=== PATIENT | female | born 1950 | race Caucasian/White ===

== ENCOUNTER 2017-06-13 14:23 | Observation (INO) | payer OTHER, MEDICARE ==
[2017-06-13] MEDS ORDERED: NITROGLYCERIN 0.4 MG 25 EA TAB SL ONE (14:36)
[2017-06-13] MEDS ORDERED: ASPIRIN TABLET 325 MG TAB PO ONE (14:36)
[2017-06-13] MEDS ORDERED: SODIUM CHLORIDE 0.9% (FLUSH) 10 ML SYG IV PRN (14:36)
--- NOTE | 2017-06-13 14:36 | ED.PDOC ---
History of Present Illness - General Chief Complaint: Chest Pain/DE Stated Complaint: chest pressure Time Seen by Provider: 06/13/17 14:35 Source: patient, family Exam Limitations: no limitations - History of Present Illness Initial Comments: Katie Gallegos 66 y/o female stated that she woke up with chest heavinessas well as burning sensation on her chest this am and had been constant no diaphoresis no sob no nausea/vomiting .Had same symptoms 5 years ago and underwent thallium stress test which came back negative and since then never had symptoms. Timing/Duration: 4-6 hours Severity/Quality: moderate, burning Chest Pain Radiation: no radiation Activities at Onset: none Prior Chest Pain/Cardiac Workup: stress test, thallium scan - 5 years ago negative Nitro Today/Relief: 0.4 mg x 2, provided by ED Aspirin Treatment Today: 325 mg x 1, provided by ED Associated Symptoms: denies symptoms Allergies/Adverse Reactions: Allergies Ciprofloxacin [From Cipro] Allergy (Verified 06/13/17 15:26) Rash Doxycycline Allergy (Verified 06/13/17 15:26) Rash Sulfa Antibiotics Allergy (Verified 06/13/17 15:26) Rash Home Medications: Ambulatory Orders Pantoprazole Tablet [Protonix] 40 mg PO DAILY 06/13/17 Review of Systems - Review of Systems Constitutional: States: no symptoms reported EENTM: States: no symptoms reported Respiratory: States: no symptoms reported Cardiology: States: see HPI Gastrointestinal/Abdominal: States: other - history of gerd Genitourinary: States: no symptoms reported Musculoskeletal: States: no symptoms reported Skin: States: no symptoms reported Neurological: States: no symptoms reported Past Medical History (General) - Patient Medical History Hx Gastroesophageal Reflux: Yes Surgical History: other - right hip;hysterectomy Family Medical History - Family History Mother Hx Cardiac Disease: Yes - CAD/DE-age 56 Physical Exam - Physical Exam General Appearance: Alert, No apparent distress Eyes, Ears, Nose, Throat Exam: PERRL/EOMI, normal ENT inspection Neck: non-tender, full range of motion Respiratory: chest non-tender, lungs clear Cardiovascular/Chest: normal peripheral pulses, regular rate, rhythm, no murmur Peripheral Pulses: radial,right: 1+ Gastrointestinal/Abdominal: normal bowel sounds, non tender, soft, no organomegaly Neurologic: no motor/sensory deficits, alert, oriented x 3 Skin Exam: normal color, warm/dry Lymphatic: no adenopathy Progress - Progress Progress: 06/13/17 15:35 Vital Signs - 8 hr 06/13/17 06/13/17 15:08 15:14 Pulse Rate [ 73 82 Apical] Respiratory 20 20 Rate Blood Pressure 148/92 148/78 [Left Arm] O2 Sat by Pulse 97 95 Oximetry - Results/Orders Results/Orders: Laboratory Tests 06/13/17 06/13/17 14:47 14:47 WBC 6.8 RBC 4.69 Hgb 13.6 Hct 41.1 MCV 87.6 MCH 29.1 MCHC 33.2 RDW 13.1 Plt Count 254 MPV 9.9 Absolute Neuts (auto) 3.30 Absolute Lymphs (auto) 3.00 Absolute Monos (auto) 0.40 Absolute Eos (auto) 0.10 Absolute Basos (auto) 0.00 Neutrophils % 48.2 Lymphocytes % 44.1 Monocytes % 5.5 Eosinophils % 1.6 Basophils % 0.6 PT 11.2 INR 0.990 PTT (SP) 32.2 D-Dimer, Quantitative < 230 Sodium 140 Potassium 3.6 Chloride 106 Carbon Dioxide 25 Anion Gap 12.6 BUN 24 H Creatinine 0.82 BUN/Creatinine Ratio 29.3 H Random Glucose 173 H Serum Osmolality 287.6 Calcium 9.7 Magnesium 2.0 Total Bilirubin 0.6 Direct Bilirubin < 0.1 Indirect Bilirubin 0.5 AST 20 ALT 17 Alkaline Phosphatase 106 Creatine Kinase 95 CK-MB (CK-2) 1.6 CK-MB (CK-2) % Not Reportable Troponin I < 0.02 B-Natriuretic Peptide 16.4 Serum Total Protein 7.5 Albumin 4.2 - EKG/XRAY/CT EKG: Sinus, no ST T wave changes Comments: heart rate-79;no ischemic changes Departure - Departure Clinical Impression: Chest pain Qualifiers: Chest pain type: unspecified Qualified Code(s): R07.9 - Chest pain, unspecified Time of Disposition: 20:08 Disposition: Admit Patient Departure Forms: Patient Portal Self Enrollment Home Medications: Ambulatory Orders Pantoprazole Tablet [Protonix] 40 mg PO DAILY 06/13/17 Decision To Admit - Decistion To Admit Decision to Admit Reason: Admit from ER Decision to Admit Date: 06/13/17 Decision to Admit Time: 20:07 - D/W Og Rachel/Hospitalist
--- NOTE | 2017-06-13 14:58 | RAD ---
EXAM DESCRIPTION: Chest,1 View CLINICAL HISTORY: pain COMPARISON: None FINDINGS: Cardiac silhouette is within normal limits. EKG leads project over the chest. Aorta is tortuous. There is no focal parenchymal or pleural disease. There is no acute osseous process visualized. IMPRESSION: No evidence of acute cardiopulmonary disease. Electronically signed by: Allan Garcia MD 06/13/2017 2:57 PM CDT
[2017-06-13] MEDS ORDERED: LIDOCAINE VIS-MYLANTA 30 ML UD PO ONE ×2 (15:14→15:26)
[2017-06-13] MEDS ORDERED: PANTOPRAZOLE INJECTION 80 MG in SODIUM CHLORIDE 0.9% 100ML 80 ML IVPB ONE (15:27)
[2017-06-13] MEDS ORDERED: NITROGLYCERIN/D5W IV 250 ML IVS ONE (16:23)
[2017-06-13] MEDS ORDERED: NITROGLYCERIN/D5W IV 50,000 MCG in PREMIX BOTTLE 1 BOTTLE IVS SCH (16:30)
[2017-06-13] MEDS ORDERED: PANTOPRAZOLE SODIUM IV 40 MG VIAL ONE ×2 (16:37→17:04)
[2017-06-13] MEDS ORDERED: SODIUM CHLORIDE 0.9% 100ML 0 ML IVPB ONE (16:37)
[2017-06-13] MEDS ORDERED: HYDROcodone 10MG/APAP 325MG 1 EA TAB PO ONE (16:53)
[2017-06-13] MEDS ORDERED: SODIUM CHLORIDE 0.9% 100ML 100 ML IVPB ONE (17:04)
[2017-06-13] MEDS ORDERED: NITROGLYCERIN 0.4 MG/HR PATCH TOP ONE ×2 (19:04→19:10)
--- NOTE | 2017-06-13 21:02 | HP ---
SUPERVISING PHYSICIAN: Joseluis Garber MD CHIEF COMPLAINT: Chest pain. HISTORY OF PRESENT ILLNESS: Ms. Gallegos is a 66-year-old female patient that is from [place], [place], currently visiting friends and family with her for . She states she woke up this morning with chest heaviness described as a burning sensation, epigastric region that was constant. She denied any diaphoresis, shortness of breath, or any nausea or vomiting. She notes she had similar symptoms five years previously and underwent a thallium stress test which was negative at that time and she has not had any recurrence of symptoms. She notes she does have a history of gastritis and gastroesophageal reflux disease, which she normally takes Carafate for which she has not taken in the last several days as well as Protonix. Initial laboratory studies in the Emergency Department showed troponins were within normal limits as well as EKG showing normal sinus rhythm without any ST changes. She was initially given nitroglycerin sublingual that resulted in no significant change in her pain. This was followed by two GI cocktails which did result in some decrease of symptoms as well as morphine. She was then started in nitro drip given that she was continuing to have pain and apparently became pain free prior to the nitro drip being initiated. Dr. Tobar, Emergency Room physician, requested the patient be placed in observation to rule out any acute ischemic cardiac event. The patient was placed in observation in stable condition. PAST MEDICAL HISTORY: 1. Gastroesophageal reflux disease. 2. History of gastritis on Carafate and Protonix. 3. Diverticulosis. 4. Thallium stress test in 2011 which was negative for any ischemic changes per patient report. PAST SURGICAL HISTORY: 1. Hysterectomy. 2. Right total hip replacement. 3. Colonoscopy and EGD in 2016. HOME MEDICATIONS: 1. Protonix 40 mg daily. 2. Carafate 1 gram with meals and snacks as needed p.r.n. 3. Compounded GI cocktail PRN ALLERGIES: CIPROFLOXACIN, DOXYCYCLINE, SULFA ANTIBIOTICS. HEALTH CARE PROVIDERS: 1. Primary care provider is Judy Mckeon. 2. Forestry Faculty Member is Madonna Helms. FAMILY HISTORY: Mother had history of cardiovascular disease. SOCIAL HISTORY: The patient lives in [facility]. She works for [employer]. She is . She is currently visiting here during do season. She has never smoked and rarely drinks. REVIEW OF SYSTEMS: CONSTITUTIONAL: Denies any fevers, chills. HEENT: Denies headaches, nasal congestion or visual changes. RESPIRATORY: No shortness of breath, cough or congestion. CARDIOVASCULAR: As noted in history of present illness. GASTROINTESTINAL: Significant history of gastroesophageal reflux disease, as well as noted in history of present illness. No nausea, vomiting, diarrhea, or constipation. GENITOURINARY: Denies dysuria, hematuria, or other urinary symptoms. NEUROLOGIC: No dizziness, presyncopal episodes, syncopal episodes, other neurologic deficits. PHYSICAL EXAMINATION: VITAL SIGNS: Temperature 98.2. Pulse 75. Blood pressure initially 158/101. Heart 75. O2 saturation 96% on room air. Blood pressure on admission to Medical/Surgical Floor 125/69, pulse 57, respiratory rate 18, saturation 96% on room air. Admission weight 87.7 kg. GENERAL: On examination on Medical/Surgical Floor, the patient was alert and oriented, appeared to be comfortable in no acute distress. HEENT: Tympanic membranes clear bilaterally. Oropharynx is pink, moist without any lesions. NECK: Supple with full range of motion. No jugular venous distention noted. CHEST: Lungs clear to auscultation bilaterally without any rhonchi, wheezes, or rales. CARDIOVASCULAR: Regular rate and rhythm without any appreciable murmurs, gallops, or rubs. ABDOMEN: Obese with some mild tenderness noted in the epigastrium, but no rebound tenderness. Positive bowel sounds. EXTREMITIES: There is no cyanosis, clubbing or edema. NEUROLOGIC: The patient is alert and oriented times three. Facial features are symmetrical. Extraocular movements are within normal limits. There is no nystagmus noted. LABORATORY: CBC was within normal limits with white count 6.8, platelet count 254,000, hemoglobin 13.6, hematocrit 41.4, differential within normal limits. Coagulation studies showed normal PT, PT-T and D-dimer. Chemistries showed normal electrolytes with potassium 3.6, magnesium 2.0, BUN 24, creatinine 0.82, glucose 173. Liver functions were all within normal limits. Amylase and lipase were normal. She had two sets of troponins prior to admission and both showed troponin less than 0.02. After admission, third set showed troponin less than 0.02. BNP 16.4. RADIOLOGY: Single view chest x-ray in the Emergency Department per radiologic interpretation showed no evidence of acute cardiopulmonary diseases. She had three sets of EKGs, all showing normal sinus rhythm without any ST changes, T- wave inversions or ischemic changes. ASSESSMENT: 1. Chest pain, uncertain etiology with the patient having a strong history of gastroesophageal reflux disease having received significant pain relief with GI cocktail with cardiac enzymes initially within normal limits and EKG showing no acute changes or any ischemic changes. 2. Hypertension as noted on admission with the patient having no mention of hypertension and no hypertensive medication. 3. Gastroesophageal reflux disease with a strong history of multiple bouts of gastritis on Carafate and Protonix. 4. History of diverticulosis. 5. Obesity with a BMI of 34.6 PLAN: The patient is placed in observation tonight for further telemetry and cardiac monitoring to further rule out any acute ischemic coronary event. She was pain free on admission to the Medical/Surgical Floor. She will be on a cardiac diet. She will be started her on DVT prophylaxis per protocol. She was given Protonix in the Emergency Room and this will be continued as well as Carafate. Anticipated length of stay to be one to two days with discharge tomorrow pending further studies of cardiac enzymes in the morning as well as EKG. Should the patient show any significant changes, certainly we will readdress and plan accordingly for possible transfer for further evaluation by higher level of care for cardiology. At this time, the patient is stable. Once discharged, she will need close followup with both her gastrointestinal specialist, Dr. Helms, and her primary care physician, Dr. Mckeon, as well as at some point a cardiac workup. Until then, we will continue to monitor the patient closely and treat appropriately. #[id number] [facility]
[2017-06-13] MEDS ORDERED: NITROGLYCERIN 0.4 MG 25 EA TAB SL PRN (21:26)
[2017-06-13] MEDS ORDERED: ACETAMINOPHEN 325 MG TAB PO PRN (21:26)
[2017-06-13] MEDS ORDERED: IV SET AND CAP CHANGE INJ INJ SCH (21:30)
[2017-06-13] MEDS ORDERED: SUCRALFATE 1 GM/10 ML 1 GM UD PO ONE (22:00)
[2017-06-13] MEDS: MORPHINE SULFATE INJ 10 MG/ML VIAL IV PRN (22:21)
[2017-06-13] MEDS: KCL 20MEQ/0.45% NS 1,000 ML IVS PRN (22:22)
--- NOTE | 2017-06-13 22:32 | PCM.CORE ---
Physician DVT/VTE - Nurse DVT Assessment & Total Each Risk Factor Represents 2 Points: Age 60-74 Each Risk Factor is 1 Point: Obesity (BMI >25) DVT Assessment Score: 3 - 3-4 High Risk Treatments: Early Ambulation *, Sequential Compression Device Pharmacological: Enoxaparin 40 mg SQ Daily
[2017-06-13] MEDS ORDERED: ALPRAZolam 0.25 MG TAB PO ONE (22:37)
[2017-06-13] MEDS ORDERED: CALCIUM CARBONATE (ANTACID) 500 MG CHEWABLE TAB PO ONE (22:37)
[2017-06-13] MEDS ORDERED: ALUM & MAG HYDROX-SIMETHICONE 30 ML UD PO ONE (22:37)
[2017-06-13] MEDS: SODIUM CHLORIDE 0.9% (FLUSH) 10 ML SYG IV PRN (22:51)
[2017-06-13] MEDS ORDERED: ENOXAPARIN SODIUM 40 MG/0.4 ML SYG SUBCU SCH (23:00)
[2017-06-14] MEDS: SODIUM CHLORIDE 0.9% (FLUSH) 10 ML SYG IV PRN (03:29)
[2017-06-14] MEDS: MORPHINE SULFATE INJ 10 MG/ML VIAL IV PRN ×3 (03:30→12:01)
[2017-06-14] MEDS: SUCRALFATE 1 GM/10 ML 1 GM UD PO SCH ×2 (06:11→11:20)
[2017-06-14] MEDS ORDERED: KCL 20MEQ/0.45% NS 1,000 ML IVS ONE (07:35)
[2017-06-14] MEDS: KCL 20MEQ/0.45% NS 1,000 ML IVS PRN (07:37)
[2017-06-14] MEDS ORDERED: NITROGLYCERIN 0.4 MG/HR PATCH TOP SCH (09:00)
[2017-06-14] MEDS ORDERED: SODIUM CHLORIDE 0.9% (FLUSH) 10 ML SYG IV SCH (09:00)
[2017-06-14] MEDS ORDERED: PANTOPRAZOLE SODIUM TAB 40 MG PO SCH (09:00)
[2017-06-14] MEDS ORDERED: ASPIRIN TABLET 325 MG TAB PO SCH (09:00)
--- NOTE | 2017-06-14 09:21 | CT ---
PROCEDURE: CTA Chest HISTORY: chest pain, sob Indication: Same as above Comparison: None Technique: CT of the chest was done with intravenous contrast followed by CT angiography of the pulmonary arteries. Coronal, Sagittal and 3D volumetric MIP reconstructions were generated from the acquired data. The patient was injected with contrast intravenously, without any documented immediate adverse reactions. This exam was performed according to our departmental dose-optimization program, which includes automated exposure control, adjustment of the mA and/or KV according to the patient's size and/or use of iterative reconstruction technique. FINDINGS: There is no visualization of filling defects in the main pulmonary trunk, main right and left pulmonary arteries or their lower order branches to suggest pulmonary embolism. The bilateral main pulmonary arteries are normal in caliber. There is no evidence of interventricular septal deviation or filling defects in the cardiac chambers. There are no pneumothoraces or pleural effusions. There is presence of mild bilateral lower lobe discoid atelectasis/infiltrates. Note is made of few benign calcified granulomas in the right lung. Few benign calcified lymph nodes are seen in the subcarinal region of the mediastinum The trachea, bilateral mainstem bronchi and the bilateral main segmental bronchi are patent without any intraluminal mass lesions. There is no gross evidence of clinically significant thoracic aortic aneurysm or thoracic aortic dissection. There is no clinically significant pericardial effusion. There are no pathologically enlarged lymph nodes in the mediastinum, bilateral hilar, bilateral supraclavicular or the bilateral axillary regions. The thoracic bony rib cage appears grossly unremarkable. The visualized thoracic spine is unremarkable. Limited evaluation of the evaluated upper abdomen does not show any gross abnormalities. IMPRESSION: There is no pulmonary embolism There is presence of mild bilateral lower lobe discoid atelectasis/infiltrates Electronically signed by: Carlos Hills MD 06/14/2017 9:20 AM CDT Workstation: [id number]
[2017-06-14] MEDS ORDERED: ONDANSETRON INJ 4 MG/2 ML VIAL IV PRN (09:26)
[2017-06-14] MEDS ORDERED: KETOROLAC TROMETHAMINE INJ 30 MG/ML VIAL IV ONE (09:33)
--- NOTE | 2017-06-14 10:14 | CT ---
EXAM DESCRIPTION: Abdoment/Pelvis w/o Contrast CLINICAL HISTORY: biliary colic, Epigastric pain COMPARISON: None Available TECHNIQUE: Contiguous axial images of the abdomen and pelvis were obtained followed by reconstruction images. This exam was performed according to our departmental dose-optimization program, which includes automated exposure control, adjustment of the mA and/or kV according to patient size and/or use of iterative reconstruction technique. FINDINGS: Patient received contrast for an earlier examination. There is contrast material within the collecting system. Linear opacities within the lungs may represent scar versus subsegmental atelectasis. There is a calcified pulmonary nodule within the right lung. There is atherosclerosis. Patient is status post right hip arthroplasty. Metallic artifact at patient's right hip degrades multiple images. The liver, spleen, pancreas and kidneys are within normal limits. There is no hydronephrosis. The gallbladder is unremarkable by CT criteria. Adrenal glands are within normal limits. Aorta is of normal caliber and tapering. There is no free fluid in the abdomen or pelvis. There is no bowel obstruction. There is no stranding of the mesenteric fat to suggest an inflammatory response. An appendiceal stump was not visualized. Entire appendix was not delineated. There is no pericecal inflammation. IMPRESSION: No acute intra-abdominal abnormality. Electronically signed by: Allan Garcia MD 06/14/2017 10:12 AM CDT
[2017-06-14] MEDS ORDERED: PANTOPRAZOLE SODIUM IV 40 MG VIAL IV ONE (11:13)
[2017-06-14] MEDS ORDERED: LIDOCAINE VIS-MYLANTA 30 ML UD PO ONE (11:17)
[2017-06-14 12:36] VITALS: BP 113/60; TEMP 98.4; O2SAT 96
[2017-06-14] MEDS ORDERED: REMOVE OLD PATCH TOP SCH (21:00)
--- NOTE | 2017-06-23 15:48 | DS ---
SUPERVISING PHYSICIAN: Ten Wu M.D. DISCHARGE DIAGNOSIS: 1. Chest pain of uncertain etiology likely secondary to gastroesophageal reflux disease exacerbation as she did show good relief clinically with a GI cocktail and her cardiac enzymes had all been within normal limits serially as well as EKG showed no acute changes or ischemic changes. 2. Hypertension as noted on admission with the patient having no history of hypertension and not on any hypertensive medications at time of admission. 3. Gastroesophageal reflux disease with strong history of multiple bouts of gastritis currently on Carafate and Protonix. 4. History of diverticulosis without any evidence of diverticulitis. 5. Obesity with a BMI of 34.6. HISTORY OF PRESENT ILLNESS: Ms. Gallegos is a 66-year-old female patient that lives in [place], [place], and was visiting friends and family with her for . She states she woke up the morning of admission with chest heaviness described as a burning sensation in the epigastric region that was constant. She denied any diaphoresis, shortness of breath, or any nausea or vomiting. She notes she had similar symptoms five years previously and underwent a thallium stress test which was negative at that time and she had not had any recurrence of symptoms. She notes she does have a history of gastritis and gastroesophageal reflux disease, which she normally takes Carafate for which she has not been taking for several days as well as Protonix. Initial laboratory studies in the Emergency Department showed troponins were within normal limits as well as EKG showing normal sinus rhythm without any ST changes. She was initially given sublingual Nitro that resulted in no significant change in her pain after which was followed by two GI cocktails which did result in decrease of symptoms along with morphine. She was then started initially on a nitro drip which was stopped prior to actually being started because she had become pain free after the GI cocktails p.o. Dr. Tobar, Emergency Room physician, requested the patient be placed in observation to rule out any acute ischemic cardiac event as well as cardiac telemetry monitoring. The patient was placed in observation in stable condition. LABORATORY STUDIES: CBC on admission and at discharge was within normal limits with white count 8.7, hemoglobin 12.4, hematocrit 37.4, platelet count 235,000. Differential was within normal limits. Coagulation studies showed a normal PT , PTT and D-dimer with chemistries showed normal electrolytes both on admission and before discharge with potassium 3.9, BUN 25, creatinine 0.78, glucose 114. Liver functions all were within normal limits. Cardiac enzymes were all within normal limits with troponin being less than 0.02 times 3 specimens. Lipid panel showed elevated triglycerides at 179 as well as an elevated cholesterol at 212 with an LDL of 129, HDL was 45. Amylase and lipase were all within normal limits with final amylase and lipase being normal, 50 for amylase, 30 for lipase. RADIOLOGY: She had a chest x-ray in the Emergency Department prior to admission and per radiology interpretation showed no evidence of acute cardiopulmonary disease. EKG showed normal sinus rhythm with no acute changes. Given the patient's symptomology and concerns for possible gallbladder pathology, a CT of the chest was complete as well as abdominal CT and on CT of the chest to rule out PE there was no visualization of filling defects within the main pulmonary trunk to suggest and evidence of pulmonary embolism as per radiology interpretation. There was note of mild bilateral lower lobe discoid atelectasis versus infiltrates. She also had an abdominal and pelvic CT again to followup with possible gallbladder pathology and per radiology interpretation there was no acute intra-abdominal abnormalities noted. HOSPITAL COURSE: Ms. Gallegos was admitted from the Emergency Room as noted for concerns for developing acute coronary syndrome with the patient having an extended history of gastroesophageal reflux disease with exacerbation having been given pain relief with GI cocktail. On admission, she was started on Carafate and Protonix. She continued to have some pain which was being controlled with morphine. Her exam was benign in regards to the abdomen. She remained hemodynamically stable with all cardiac enzymes showing to be within normal limits as well as EKG and no acute changes. There were no telemetry changes noted blood pressure pérez. At discharge, blood pressure was 113/60 with respirations 16, satting 96%. She was afebrile at 98.4. She was started on a Nitro patch prophylactically and initially on admission she did show an elevation of her blood pressure 158/101. Clinically she showed to be showing to be stable. Her pain was controlled with Toradol which did resolve after a single dose of Toradol, however given the patient's history of gastritis, there was concern for possible duodenitis versus gastritis, but no more additional Toradol was given. The patient was felt clinically well enough to be discharged to followup with her primary care providers at [facility] where she lives. PLAN: Ms. Gallegos was discharged on 06/14/17 to have close clinical followup with her primary care providers at home. She is seen by both the GI specialist and her primary care provider, and was instructed to call their office on the morning of discharge. She was instructed to avoid any NSAIDs such as aspirin, Motrin and Ibuprofen. She is to avoid fatty and spicy foods. She was instructed to take her prescriptions as directed and return to the E.D. or call 911 if she had any return of chest pain or other concerning symptoms. At discharge, she was given prescriptions for: 1. Nitro tablets 0.4 mg 1 sublingual every 5 minutes as needed and to call 911 if persisting pain. 2. Protonix 40 mg twice daily [id number]. 3. Sucralfate 1 gram 4 times daily, #40. Diet at discharge was low fat, low cholesterol diet as tolerated. Activities were no strenuous exercise until cleared by Cardiology and seen in followup. Increase walking as tolerated. Condition at discharge was stable and improved. #[id number] [facility]
== END 2017-06-14 12:37 | disposition home or self-care (01) ==
LOC: ER 14:23 → MS 21:02 → INTOOBSV 21:02
PROVIDERS: ADMIT Nurse Practitioner Family; ATTEND Nurse Practitioner Family
DX: K21.9 Gastro-esophageal reflux disease without esophagitis (principal); R07.89 Other chest pain; I10 Essential (primary) hypertension; E66.9 Obesity, unspecified; Z79.899 Other long term (current) drug therapy; Z88.1 Allergy status to other antibiotic agents; Z88.2 Allergy status to sulfonamides; Z88.3 Allergy status to other anti-infective agents; Z68.34 Body mass index [BMI] 34.0-34.9, adult; Z96.641 Presence of right artificial hip joint; Z87.19 Personal history of other diseases of the digestive system; Z90.710 Acquired absence of both cervix and uterus; Z82.49 Family history of ischemic heart disease and other diseases of the circulatory system
CPT/HCPCS: 36415 ×5; 71010; 71275; 74176; 80048; 80053; 80061; 80076; 82150 ×2; 82550 ×2; 82553 ×2; 83690 ×2; 83880; 84484 ×4; 85025 ×2; 85379; 85610; 85730; 93005 ×2; 94760 ×2; 96365; 96366; 96372; 96375 ×3; 96376; 99284; G0378; J1650; J1885; J2270 ×4; J2405; J3480 ×2; J7050